=== PATIENT | male | born 1980 | race African-American/Black ===

== ENCOUNTER 2017-05-09 10:48 | Emergency (ER) | payer MEDICAID ==
[~2017-05-09] VITALS: Ht 185.4 cm; Wt 83.9 kg
[2017-05-09 10:48] VITALS: BP 129/83
== END 2017-05-09 11:32 | disposition home or self-care (01) ==
LOC: ER 10:50
DX: L73.9 Follicular disorder, unspecified (principal)
CPT/HCPCS: 99283; A4606; Z7610